=== PATIENT | female | born 1980 | race Caucasian/White ===

== ENCOUNTER 2025-06-04 02:21 | Emergency (ER) | payer BC, SELFPAY ==
[2025-06-04 02:23] VITALS: BP 156/100
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
[2025-06-04 06:46] VITALS: BP 117/74; BMI 42.7
[2025-06-04 06:48] LABS: HCG, Serum Qualitative Screen Negative
[2025-06-04] MEDS: VIBRAMYCIN 100 MG PO (07:32)
[2025-06-04] MEDS: TRUVADA TABLET 1 TABLET PO (07:32)
[2025-06-04] MEDS: FLAGYL 500 MG PO (07:32)
[2025-06-04] MEDS: ISENTRESS 400 MG PO (07:33)
[2025-06-04 08:01] LABS: Hepatitis B Surface Antigen Negative (Negative)
[2025-06-04] MEDS: ROCEPHIN 1.4286 MG IM (08:16)
[2025-06-04 08:18] LABS: Hepatitis A Antibody, Total Negative (Negative); Hepatitis C Antibody Negative (Negative)
== END 2025-06-04 10:15 | disposition home or self-care (01) ==
LOC: EMR 02:21
PROVIDERS: Physician Assistant; EMERGENCY PHYSICIAN Emergency Medicine
DX: T74.21XA Adult sexual abuse, confirmed, initial encounter (principal); Y07.59 Other non-family member, perpetrator of maltreatment and neglect; M25.561 Pain in right knee
CPT/HCPCS: 99283; 73564; 84703; 86704; 86706; 86708; 86780; 86803; 87070; 87340; 87491; 87591